=== PATIENT | female | born 1955 | race Caucasian/White ===

== ENCOUNTER 2019-10-05 09:03 | Inpatient (IN) ==
--- NOTE | 2019-09-24 14:26 | Anesthesiology Consultation ---
Date of Service September 24, 2019 Assessment & Plan (1) Encounter for pre-operative examination: Chart Review Chart Review: Acceptable Risk for Surgery and Patient NOT seen in Pre Admission Testing Per nursing assessment 09/14/19, pt resides in [facility]- no travel otherwise. No current Covid related symptoms or history of Covid testing. Pt's daughter in law was tested for Covid around 08/24/19 and test results were negative. History Surgery Operation Date: 09/21/19 07:00 Proposed Procedures p Left Anterior Total Hip Arthroplasty - David Galvez DO Operation Date: 10/05/19 07:00 Proposed Procedures p Left Anterior Total Hip Arthroplasty - David Galvez DO Height/Weight Height: 5 ft 1 in Weight: 86.183 kg Allergies Allergy/AdvReac Type Severity Reaction Status Date / Time Penicillins Allergy Mild RASH Verified 09/14/19 10:41 Medications Home Medications Medication Instructions Recorded Confirmed Last Taken tramadol 50 mg tablet 50 mg PO Q5H PRN #60 tab 08/20/19 09/14/19 Unknown acetaminophen 500 mg PO Q5H PRN 09/14/19 09/14/19 Unknown albuterol sulfate 1 inh INHALATION QID PRN 09/14/19 09/14/19 Unknown citalopram 20 mg PO QAM 09/14/19 09/14/19 Unknown docusate sodium [Colace] 100 mg PO QAM 09/14/19 09/14/19 Unknown fluticasone propion-salmeterol 1 inh INHALATION BID 09/14/19 09/14/19 Unknown [Advair Diskus] meloxicam 15 mg PO QAM 09/14/19 09/14/19 Unknown montelukast [Singulair] 10 mg PO QAM 09/14/19 09/14/19 Unknown multivitamin 1 tab PO QAM 09/14/19 09/14/19 Unknown vitamin B complex 1 tab PO QAM 09/14/19 09/14/19 Unknown tramadol 50 mg tablet 50 mg PO Q6H PRN #60 tab 09/21/19 Unknown Past Medical History Medical History Asthma "HAS NOT USED RESCUE INHALER FOR SOME TIME" Depression Hx of supraventricular tachycardia Osteoarthritis Sleep apnea DOES NOT USE DEVICE (ORDERED CPAP) Past Family History Family History Mother Diabetes Sister Diabetes Family hx colonic polyps Other Stroke Past Surgical History Surgical History History of cardiac radiofrequency ablation 2012 AT [facility] History of carpal tunnel release RT History of colonoscopy History of total right hip arthroplasty Hx of sinus surgery [place] teeth removed Social History Smoking Status: Never smoker Do You Dip or Chew Tobacco: No Hx Alcohol Use: Yes Alcohol type: wine alcohol intake frequency: holidays/special occasions only Hx Substance Use: No substance use type: does not use Testing Laboratory Results Blood Type A Positive 09/12/19 14:27 Antibody Screen NEGATIVE 09/12/19 14:27 Laboratory Tests 09/12/19 09/12/19 09/12/19 14:26 14:26 14:26 WBC 6.87 Hgb 12.6 Hct 37.1 Plt Count 233 PT 10.4 INR 1.0 APTT 27.6 Sodium 137 Potassium 4.0 Chloride 107 Carbon Dioxide 23 BUN 22 H Creatinine 1.08 Glucose 83 Electrocardiogram Date: 09/13/19 Findings: + NSR @ (84) Chest X-Ray Date: 09/12/19 Findings: + NAD
--- NOTE | 2019-10-04 07:00 | History & Physical Report ---
Date of Service October 04, 2019 Assessment & Plan (1) Osteoarthritis of left hip: We will proceed with a left anterior total hip arthroplasty. Postoperatively she will be placed on aspirin for DVT prophylaxis and kept overnight in the hospital for postoperative medical management. She plans to use [employer] upon discharge. Holli is a low to moderate risk for hip replacement surgery. Present on Admission?: Yes History of Present Illness Chief Complaint: Primary osteoarthritis of the left hip Primary Care Provider: Silver Aleman MD Holli is a pleasant 64-year-old female who is been dealing with a 2-year history of left hip pain. It has been much worse over the last 5 months. X- rays and clinical examination have been diagnostic for severe osteoarthritis of the left hip. There is some collapse of the femoral head. She does have a history of a right hip replacement done in 2014. After failing conservative treatment on her left hip, she has elected to proceed with a left total hip arthroplasty. Allergies Allergy/AdvReac Type Severity Reaction Status Date / Time Penicillins Allergy Mild RASH Verified 09/14/19 10:41 Home Medications Home Medications Medication Instructions Recorded Confirmed Type tramadol 50 mg tablet 50 mg PO Q5H PRN #60 tab 08/20/19 09/14/19 Rx acetaminophen 500 mg PO Q5H PRN 09/14/19 09/14/19 History albuterol sulfate 1 inh INHALATION QID PRN 09/14/19 09/14/19 History citalopram 20 mg PO QAM 09/14/19 09/14/19 History docusate sodium [Colace] 100 mg PO QAM 09/14/19 09/14/19 History fluticasone propion-salmeterol 1 inh INHALATION BID 09/14/19 09/14/19 History [Advair Diskus] meloxicam 15 mg PO QAM 09/14/19 09/14/19 History montelukast [Singulair] 10 mg PO QAM 09/14/19 09/14/19 History multivitamin 1 tab PO QAM 09/14/19 09/14/19 History vitamin B complex 1 tab PO QAM 09/14/19 09/14/19 History tramadol 50 mg tablet 50 mg PO Q6H PRN #60 tab 09/21/19 Rx Past Med/Surg History Medical History Asthma "HAS NOT USED RESCUE INHALER FOR SOME TIME" Depression Hx of supraventricular tachycardia Osteoarthritis Sleep apnea DOES NOT USE DEVICE (ORDERED CPAP) Surgical History History of cardiac radiofrequency ablation 2011 AT [facility] History of carpal tunnel release RT History of colonoscopy History of total right hip arthroplasty Hx of sinus surgery [place] teeth removed Family History Mother Diabetes Sister Diabetes Family hx colonic polyps Other Stroke Social History Preferred Language: Israeli Communication Ability: Effective Manager Java Required: No Beliefs That Will Affect Care: None marital status: Legally Current Living Situation: Family Current Living Situation Comment: LIVES WITH 7 YEAR OLD GRANDAUGHTER/ LIVES NEXT DOOR ([employer] Feels Safe at Home: Yes Smoking Status: Never smoker Second Hand Exposure: No ; Hx Alcohol Use: Yes Alcohol type: wine Hx Substance Use: No Review of Systems Review of Systems: All systems reviewed & are unremarkable except as noted in HPI & below Physical Exam Constitutional: WD/WN, vitals as above Eyes: PERRL, conjunctivae normal, anicteric sclerae ENMT: external ear and nose normal, oropharynx normal Neck: trachea midline, no thyromegaly Respiratory: normal respiratory effort Cardiovascular: RRR, no murmur, no edema Gastrointestinal (Abdomen): normal bowel sounds, soft, nontender, no hepatosplenomegaly Musculoskeletal: Physical examination of the left hip reveals decreased range of motion with flexion, internal and external rotation. There is significant groin pain with forced internal rotation of the hip his leg lengths are essentially equal. Psychiatric: A+Ox3, euthymic affect Results & Data Results & Data ([facility]) Diagnostic Findings Radiographs of the left hip and pelvis demonstrate advanced osteoarthritis with joint space narrowing osteophyte formation and [id number] articulation. PG Care Time/CCT Total # of Minutes Spent Total Time Spent with Patient: Total time spent is greater than 50% in coordination of care (as documented) at patient's floor/unit and/or counseling patient: Coding Level of Care Code 42869 Initial Inpt Care Lvl 3 Diagnoses Osteoarthritis of left hip M16.12
[~2019-10-05 09:03] MED LIST: ACETAMINOPHEN 500 MG TAB PO SCH; CEFAZOLIN 2000MG 2,000 MG/15 ML SYR IV SCH; FAMOTIDINE 20 MG TAB PO SCH; GABAPENTIN 300 MG CAP PO SCH; LR 500ML BOLUS, THEN 15ML/HR IV SCH; LR 60ML/HR IV SCH; ROPIVACAINE 0.5% HCL/PF 150 MG, BUPIVACAINE 0.5% MPF 30 ML, EPINEPHrine 30MG/30ML (OR U... INSTIL SCH; TRANEXAMIC ACID 1,000 MG **IV Intra-op IV SCH; TRANEXAMIC ACID 1,000 MG **IV Pre-op IV SCH; dexAMETHasone 4 MG TAB PO SCH
[2019-10-05] MEDS ORDERED: BUPIVACAINE 0.5 % 5 MG/1 ML PF 10ML VIAL ONE (09:08)
[2019-10-05] MEDS ORDERED: ONDANSETRON INJ 2 MG/ML 2 ML VIAL IV PRN ×2 (10:06→14:45)
[2019-10-05] MEDS ORDERED: ATROPINE SULFATE 0.1 MG/ML 10ML SYR IV PRN (10:06)
[2019-10-05] MEDS ORDERED: fentaNYL citrate 100 MCG/2 ML VIAL IV PRN (10:06)
[2019-10-05] MEDS ORDERED: ePHEDrine sulfate 50 MG/ML AMP IV PRN (10:06)
[2019-10-05] MEDS ORDERED: MIDAZOLAM HCL 1 MG/ML 2ML VIAL ONE ×2 (10:12)
[2019-10-05] MEDS ORDERED: fentaNYL citrate 100 MCG/2 ML VIAL ONE (10:12)
--- NOTE | 2019-10-05 10:48 | History & Physical Bridge Note ---
Date of Service October 05, 2019 History & Physical Bridge Note I have examined the patient, reviewed the History & Physical and in the interval since the performance of the History & Physical I have noted the following changes of clinical significance: no changes noted
[2019-10-05] MEDS ORDERED: CEFAZOLIN 2,000 MG/15 ML IV PUSH IV ONE (10:59)
[2019-10-05] MEDS ORDERED: CEFAZOLIN 2000MG 2,000 MG/15 ML SYR IV SCH (11:00)
[2019-10-05] MEDS ORDERED: ORTHO JOINT ANESTHETIC ONE (11:23)
[2019-10-05] MEDS ORDERED: PROPOFOL IV EMULSION 10 MG/ML 20 ML VIAL IV ONE (12:35)
--- NOTE | 2019-10-05 13:08 | Operative Report ---
PG Post Operative Report Pre & Post Diagnosis Operation Date: 09/21/19 07:00 <No data on this case meets the specified criteria> Operation Date: 10/05/19 10:40 Pre-Op Diagnosis: Left Hip Degenerative Joint Disease Post-Op Diagnosis: Left Hip Degenerative Joint Disease I identified the patient and participated in the time-out.: Yes Procedure Operation Date: 09/21/19 07:00 <No data on this case meets the specified criteria> Operation Date: 10/05/19 10:40 Actual Procedures p Left Anterior Total Hip Arthroplasty(Left) - David Galvez DO Surgeon David Galvez, Retail Coverage Merchandiser Lead David Fletcher PAC Estimated Blood Loss 250 Findings Consistent with Post-Op Diagnosis Specimens Left femoral head Complications none Disposition Disposition: Recovery Room Indications Holli is a pleasant 64-year-old female who is been dealing with chronic increasing left hip pain. Is been really bad over the past few months. X-rays and clinical examination were diagnostic for advanced arthritis with collapse of the femoral head. After failing conservative treatment, she elected to proceed with a left total hip arthroplasty. Description of Procedure Implants used I used a Biomet Taperloc total hip arthroplasty system with a size 9 standard offset Taperloc stem, a 46 mm G7 cup with a 25mm screw, an E1 polyethylene liner, a 32 mm ceramic head with a 0 neck. Holli arrived at the hospital for the above procedure. She was seen in the preoperative holding area and the operative extremity was identified and signed. She was given a spinal anesthetic, a preoperative antibiotic, and TXA. She was then taken back to the operating room and laid on the table in the supine position. She was given basic sedation. The operative leg was secured to a Elena stst leg positioner. The hip was then prepped and draped in sterile fashion. A timeout was done and the patient and the operative extremity was properly identified. An anterior approach was used. Dissection was taken down through the fascia and the tensor muscle belly was retracted laterally and the rectus was retracted medially. The circumflex vessels were identified and ligated. The capsule was then incised and tagged for later repair. The femoral neck was then cut and the femoral head was removed. The acetabulum was exposed. Time was spent doing a complete circumferential labral release. Sequential reaming of the acetabulum up to a size 45 reamer was done. Final reamings were done under fluoroscopy to ensure appropriate version. A Biomet 46 mm G7 cup was then impacted into place. A single 25 mm screw was placed. The E1 polyethylene liner was then snapped into place. Surrounding soft tissues were then injected with 100 cc of an orthopedic pain control cocktail. The proximal femur was then exposed. Sequential broaching up to a size 9 broach was done. Off that broach a size 32 head with a 0 neck was trialed. The hip was reduced and fluoroscopic images showed anatomic alignment of the implants in acceptable length. The broach was removed. The final size 9 standard offset Taperloc stem was then impacted into place. A ceramic 32 mm head with a 0 neck was then impacted onto the stem and the hip was reduced. Final fluoroscopic images showed anatomic alignment of the hip. The capsule was then closed with #1 Vicryl suture. A dilute betadyne lavage was then done for 3 minutes. The joint was then irrigated with normal saline solution. The fascia was closed with #1 PDS suture. Skin was closed with 2-0 Vicryl, osiris, and a Umm VAC dressing. She was then transferred to a hospital bed and taken to the post anesthesia care unit in stable condition. She tolerated the procedure well. David Fletcher PA-C, was present for the entire procedure. He was critical for patient positioning, prepping, draping, retraction exposure, wound closure and application of sterile dressing. I attest to the content of the Intraoperative Record and any orders documented therein. Any exceptions are noted below.
--- NOTE | 2019-10-05 13:28 | Fluoroscopy Report ---
FL hip LT 1V CLINICAL HISTORY: Left hip implant. COMPARISON STUDY: None. FLUOROSCOPY TIME: 24 seconds. FINDINGS: 2 fluoroscopic spot images of the left hip demonstrate a left total hip arthroplasty. The h eart appears intact. No fracture or dislocation. IMPRESSION: Fluoroscopy provided for left total hip arthroplasty. ACT 112: Negative or not required by law. Electronically signed by: Magdiel Levine M.D. 10/05/2019 1:27 PM
[2019-10-05] MEDS ORDERED: PHENYLEPHRINE HCL 10 MG/ML VIAL ONE (13:43)
--- NOTE | 2019-10-05 14:16 | Anesthesiology Progress Note ---
Date of Service October 05, 2019 Anesthesia Post Procedure Vital Signs Vital Signs: Temp Pulse Pulse Resp BP Pulse Ox 10/05/19 14:15 98.1 F 88 21 94/56 L 94 10/05/19 14:05 98.1 F 86 16 98/51 L 95 10/05/19 13:55 89 15 97/54 L 93 10/05/19 13:45 91 H 16 102/61 96 10/05/19 13:38 97.9 F 94 H 16 98/56 L 96 10/05/19 09:36 98.6 F 109 H 16 139/75 97 Pain Intensity Left Hip: Pain Intensity: 4 Transfer of Care Handoff Completed per policy Notes Mental Status: alert / awake / arousable and participated in evaluation Patient Amnestic to Procedure: Yes Nausea / Vomiting: adequately controlled Pain: adequately controlled Airway Patency, RR, SpO2: stable & adequate BP & HR: stable & adequate Hydration State: stable & adequate Neuraxial Anesthesia: was administered and sensory block is resolving Anesthetic Complications: no major complications apparent and Pt Satisfied with anesthetic care
--- NOTE | 2019-10-05 14:24 | XRay Report ---
AP PELVIS, CROSSTABLE LATERAL LEFT HIP History: Left total hip arthroplasty. Degenerative arthritis. Postop. FINDINGS: The patient is status post a left total hip arthroplasty. The hardware is intact. No fractu re or dislocation. Skin osiris are in place. Evidence for prior right total hip arthroplasty. IMPRESSION: Left total hip arthroplasty. No evidence for hardware complication. ACT 112: Negative or not required by law. Electronically signed by: Magdiel Levine M.D. 10/05/2019 2:23 PM
[2019-10-05] MEDS ORDERED: bisacodyL 10 MG SUPP PR PRN (14:45)
[2019-10-05] MEDS ORDERED: NALOXONE HCL 0.4 MG/1 ML VIAL/CARP IV PRN (14:45)
[2019-10-05] MEDS ORDERED: ALBUTEROL HFA 8 GM INHALER INH PRN (14:45)
[2019-10-05] MEDS ORDERED: METOCLOPRAMIDE HCL INJ 5 MG/ML 2 ML VIAL IV PRN (14:45)
[2019-10-05] MEDS ORDERED: HYDROmorphone INJ 0.5 MG/0.5 ML SYR IV PRN (14:45)
[2019-10-05] MEDS ORDERED: MAGNESIUM HYDROXIDE SUSP 30 ML UDC PO PRN (14:45)
[2019-10-05] MEDS: ACETAMINOPHEN 500 MG TAB PO SCH ×2 (15:15→22:09)
[2019-10-05] MEDS: SODIUM CHLORIDE 0.9% 1000ML 1,000 ML IV SCH (15:16)
[2019-10-05] MEDS: KETOROLAC TROMETHAMINE 15 MG/ML VIAL IV SCH ×2 (18:43→23:20)
[2019-10-05] MEDS: CEFAZOLIN 2000MG 2,000 MG/15 ML SYR IV SCH (18:48)
[2019-10-05] MEDS: DOCUSATE SODIUM 100 MG CAP PO SCH (20:18)
[2019-10-05] MEDS: ASPIRIN 81 MG ECTAB PO SCH (20:18)
[2019-10-05] MEDS ORDERED: SENNA 8.6 MG TAB PO SCH (21:00)
[2019-10-06] MEDS: OXYCODONE HCL IR 5 MG TAB (IMMEDIATE RELEASE) PO PRN ×2 (00:31→07:41)
[2019-10-06] MEDS: SODIUM CHLORIDE 0.9% 1000ML 1,000 ML IV SCH (01:29)
[2019-10-06] MEDS: CEFAZOLIN 2000MG 2,000 MG/15 ML SYR IV SCH (02:12)
[2019-10-06 05:55] LABS: Hematocrit (blood only) 30.1 % (37-47); Hemoglobin 10.2 g/dL (12.0-16.0); Immature Granulocytes # (auto) 0.04 K/uL (0.00-0.02); Immature Granulocytes % (auto) 0.3 %; Lymphocytes # (auto) 0.99 K/uL (1.2-3.4); Mean Corpuscular Hemoglobin 30.4 pg (25-34); Mean Corpuscular Hgb Conc 33.9 g/dL (32-36); Mean Corpuscular Volume 89.6 fL (80-100); Mean Platelet Volume 10.3 fL (7.4-10.4); Monocytes # (auto) 0.96 K/uL (0.11-0.59); Monocytes % (auto) 6.8 %; Neutrophils # (auto) 12.17 K/uL (1.4-6.5); Neutrophils % (auto) 85.9 %; Platelet Count 192 K/uL (130-400); RDW Standard Deviation 46.1 fL (36.4-46.3); Red Blood Count 3.36 M/uL (4.2-5.4); White Blood Count 14.16 K/uL (4.8-10.8)
[2019-10-06] MEDS: ACETAMINOPHEN 500 MG TAB PO SCH (06:06)
[2019-10-06] MEDS: KETOROLAC TROMETHAMINE 15 MG/ML VIAL IV SCH (06:07)
[2019-10-06 06:16] LABS: BUN Creatinine Ratio 22.9 (10-20); Calcium 8.4 mg/dl (8.5-10.1); Creatinine Clr Calc Pharmacy 50.8 ml/min; Est GFR (African American) 59.7; Est GFR (Non-African American) 51.5; Potassium 4.2 mmol/L (3.5-5.1)
--- NOTE | 2019-10-06 06:46 | Orthopedic Progress Note ---
Date of Service October 06, 2019 Assessment & Plan (1) History of total left hip arthroplasty: Overall she is doing very well. She is not having much pain in the left hip. She will be seen by physical therapy this morning for ambulation and range of motion exercises. She is on aspirin for DVT prophylaxis. She can be discharged home later today. She will follow-up with orthopedics in 2 weeks. Present on Admission?: Yes Pati De La Garza was seen and examined at bedside this morning. Overall she is doing very well. She is having much pain in the right hip. She has been up into the bathroom. She has no complaints. Physical Exam Musculoskeletal: On physical examination of the left hip, the Umm VAC dressing is to suction. Her leg lengths are equal. She has active dorsiflexion and plantarflexion of her left ankle. Results & Data ([facility]) Vital Signs (Past 12 Hours) Vital Signs Temp Pulse Resp BP Pulse Ox 10/06/19 03:32 36.6 C 88 16 109/66 97 10/05/19 23:22 36.7 C 84 16 120/69 95 10/05/19 20:15 36.3 C L 94 H 16 105/63 99 Laboratory Results H & H 10/06/19 Range/Units 05:11 Hgb 10.2 L (12.0-16.0) g/dL Hct 30.1 L (37-47) % Diagnostic Findings Postoperative x-rays of the left hip show the prosthesis to be in anatomic alignment without any evidence of fracture, dislocation, or loosening. PG Care Time/CCT Total # of Minutes Spent Total Time Spent with Patient: Total time spent is greater than 50% in coordination of care (as documented) at patient's floor/unit and/or counseling patient: Coding Level of Care Code None Diagnoses History of total left hip arthroplasty Z96.642
--- NOTE | 2019-10-06 06:47 | Discharge Summary ---
Date of Service October 06, 2019 Admission HPI Per Admitting Provider Holli is a pleasant 64-year-old female who is been dealing with a 2-year history of left hip pain. It has been much worse over the last 5 months. X-rays and clinical examination have been diagnostic for severe osteoarthritis of the left hip. There is some collapse of the femoral head. She does have a history of a right hip replacement done in 2014. After failing conservative treatment on her left hip, she has elected to proceed with a left total hip arthroplasty. Principal Diagnosis Left total hip arthroplasty Discharge Data Allergies Allergy/AdvReac Type Severity Reaction Status Date / Time Penicillins Allergy Mild RASH Verified 10/05/19 09:27 Consultations 10/06/19 08:00 Consult Case Management - Discharge Planning Routine Procedures Performed Operation Date: 09/21/19 07:00 <No data on this case meets the specified criteria> Operation Date: 10/05/19 10:40 Actual Procedures p Left Anterior Total Hip Arthroplasty(Left) - David Galvez DO Ordered Studies 10/05/19 10:40 FL fluoroscopy <1hr Routine FL hip LT 1V Routine Hospital Course (1) History of total left hip arthroplasty: On October 05, 2019 Holli arrived at [facility] and underwent a left anterior total hip arthroplasty without complication. She had a spinal anesthetic. Postoperatively she was started on aspirin for DVT prophylaxis and discharged to general orthopedic floors. Her hospital course was uneventful. On postop day #1 her H&H was stable and her pain was well controlled. She was able to participate well with physical therapy doing ambulation and range of motion exercises. She was then discharged to home. She will follow-up with orthopedics in 2 weeks. Total Time Total Time Spent Total Time Spent (In Minutes): 20 Discharge Plan Discharge Items Patient Disposition: Home - Home Health Services Reason For Visit: Left Hip Degenerative Joint Disease Discharge Diagnosis: Left total hip arthroplasty Activity: As commented below Non-emergency contact: Surgeon Call non-emergency contact if: your wound has increased redness and your wound has increased drainage Follow-up/Referrals: Silver Aleman MD [Primary Care Provider] - Diet: Regular Addtl Attending Provider Instructions: Activity and Therapy Recommendations: * If you are using [facility] then therapy will be provided at your home until they feel you have accomplished all of your goals. * If you are using [facility] then Physical Therapy will be provided until they feel you are ready to start Outpatient Physical Therapy. * If you are not using home therapy then Outpatient Physical Therapy should start about 3-5 days from your day of surgery. Therapy will last about 6-10 weeks * You were shown a series of exercises in the hospital. Do these exercises three times each day including the exercises you were shown in physical therapy. * Get up and walk several times each day.~ For the first four weeks, try not to stand or walk for more than one hour at a time. If you do stand or walk for more than one hour, you will not hurt anything, but your leg will likely swell.~~ * As you feel comfortable, you may change from the walker or crutches to a cane and~then to independent walking. Medications: * Narcotic You will likely be sent home from the hospital with a prescription for the narcotic pain medication that worked best throughout your stay. * Aspirin Most patients will be required to take Aspirin 81mg twice a day for 6 weeks after surgery. This is obtained [id number] and a prescription is not necessary. * Other medications may be prescribed for specific circumstances. If you have any questions, please call the office at . * Resume previous home medications unless otherwise instructed TEDs/Elastic Stockings: The white elastic stockings help limit swelling and prevent blood clots from forming in your legs. The more you wear them, the more they work. Wear them for six weeks. Dressing Care: You will likely have a purple VAC dressing after surgery. This dressing will keep the incision dry and promote early healing. After about 7 days the batteries will wear out and the VAC will lose suction. Simply remove the dressing at that time and throw everything away, including the small suction machine. Then, you may leave the osiris open to air or cover them with a dry dressing so they do not rub on your pants. The osiris will be removed at your 2 week follow-up appointment. Showering: You may shower immediately with the purple VAC dressing. Let the shower spray hit your opposite side and slowly pat the plastic dry. Do not soak the dressing. After the dressing is removed you may shower normally with the osiris exposed. Let soapy water run over the osiris and pat them dry. Things To Watch For: * Drainage from the incision site that occurs more than one week after your surgery. * Increased redness at the incision site. * Fever above 102 degrees Fahrenheit. * Unusual chest pain or shortness of breath. * Call [facility] at with any of the above problems Follow-Up Visit: Follow-up with Dr. Galvez's PA (David Fltecher) 2-3 weeks after your day of surgery. He will remove your osiris and answer any questions. If you have any additional questions or concerns, Dr Galvez is usually in the office at the same time and will be available An appointment was probably scheduled when you signed-up for surgery in the office. If you have any questions call Office Instructions: More detailed instructions as well as Frequently Asked Questions were provided in a folder by our office when you signed-up for surgery. Please review these instructions when you get home. If you have any further questions or concerns, please feel free to call the office at [phone] Pending Studies at Discharge: No Stand-Alone Forms: [facility], Smoking Cessation Medications and DC Order Prescriptions: New oxycodone 5 mg Tablet 5 mg PO Q4H PRN (Reason: pain) Qty: 30 RF: 0 aspirin 81 mg Tablet,Delayed Release (Dr/Ec) 81 mg PO BID 42 Days Qty: 0 RF: 0 Continued tramadol 50 mg tablet 50 mg PO Q5H PRN (Reason: pain) Qty: 60 RF: 0 multivitamin Tablet 1 tab PO QAM RF: 0 meloxicam 15 mg Tablet 15 mg PO QAM RF: 0 acetaminophen 500 mg Tablet 500 mg PO Q5H PRN (Reason: Pain) RF: 0 citalopram 20 mg Tablet 20 mg PO QAM RF: 0 vitamin B complex Tablet 1 tab PO QAM RF: 0 montelukast [Singulair] 10 mg Tablet 10 mg PO QAM RF: 0 fluticasone propion-salmeterol [Advair Diskus] 100-50 mcg/dose Blister With Device 1 inh INHALATION BID RF: 0 docusate sodium [Colace] 100 mg Capsule 100 mg PO QAM RF: 0 albuterol sulfate 90 mcg/actuation Hfa Aerosol Inhaler 1 inh INHALATION QID PRN (Reason: SHORT OF BREATH) RF: 0 Discharge Orders: Discharge Order (Routine); Ordered 10/06/19 Ordered By: David Galvez Admission Data Admit Date/Time: 10/05/19 13:40 Attending Provider: David Galvez Admit Provider: David Galvez Primary Care Provider: Silver Aleman Coding Level of Care Code D/C Day Management <30 mins Diagnoses History of total left hip arthroplasty Z96.642
[2019-10-06] MEDS: ASPIRIN 81 MG ECTAB PO SCH (07:35)
[2019-10-06] MEDS: DOCUSATE SODIUM 100 MG CAP PO SCH (07:36)
[2019-10-06] MEDS ORDERED: dexAMETHasone 4 MG TAB PO SCH (08:00)
[2019-10-06] MEDS ORDERED: DOCUSATE SODIUM 100 MG CAP PO SCH (09:00)
[2019-10-06] MEDS ORDERED: FLUTICASONE/VILANTEROL 200/25MCG 14 PUFFS/INHALER INH SCH (09:00)
[2019-10-06] MEDS ORDERED: MULTIVITAMIN TAB PO SCH ×2 (09:00)
[2019-10-06] MEDS ORDERED: CITALOPRAM 20 MG TAB PO SCH (09:00)
[2019-10-06] MEDS ORDERED: MONTELUKAST SODIUM 10 MG TABLET PO SCH (09:00)
== END 2019-10-06 11:28 | disposition home health service (06) | DRG 470 ==
LOC: ASU 09:03 → 3E 13:40